=== PATIENT | female | born 1985 | race Caucasian/White ===

== ENCOUNTER 2019-01-31 14:28 | Emergency (ER) | payer OTHER ==
[~2019-01-31] VITALS: Ht 162.6 cm; Wt 72.6 kg
[~2019-01-31 14:28] MED LIST: ABILIFY10 MG PO; ADDERALL 20 MG20 M1 PO; ADDERALL 30 MG30 MG; ALPRAZOLAM XR2 MG; AMOXICILLIN 50500 MG PO; BACTRIM DS TAB1 EACH PO; CARISOPRODOL 3350 MG; CARISOPRODOL 3350 MG PO; CYMBALTA; CYMBALTA30 MG PO; ENBREL25 MG/0.5 SQ; FLAGYL500 MG PO; HIBICLENS120 ML TP; HYDROXYCHLOROQ200 M1 PO; IBUPROFEN 800800 M1 PO; MUPIROCIN15 GM TP; NEURONTIN 300300 M1 PO; NOHOMEMEDICATIONS; NORCO 5-325 TA1 EACH PO; PEPCID20 MG PO; PHENERGAN 25 MG25 M1; PHENERGAN12.5 MG RC; PREDNISONE; PREDNISONE 10 M10 M1 PO; PREDNISONE 10 M10 MG PO; PREDNISONE 20 M20 MG PO; PROMETHAZINE12.5 M1 PO; SUBOXONE 8 MG-1 EAC3; TRAMADOL; ZANTAC 150MG T150 MG PO
[2019-01-31 15:48] LABS: ABSOLUTE NEUTROPHILS 3.1 thou/uL (1.4-8.2); BASOPHILS 0.6 % (0.0-2.0); EOSINOPHILS 1.6 % (0.0-3.0); HEMATOCRIT 38.3 % (37.0-47.0); HEMOGLOBIN 13.3 gm/dL (12.0-15.0); LYMPHOCYTES 23.8 % (24.0-44.0); MCH 33.1 pg (26.0-34.0); MCHC 34.7 g/dL (28.0-37.0); MCV 95.5 fL (80.0-100.0); MONOCYTES 7.7 % (1.0-8.0); PLATELET COUNT 241 thou/uL (150-400); POLYS 66.3 % (36.0-66.0); RBC 4.01 mil/uL (4.20-5.00); RDW 12.6 % (10.5-14.5); WBC 4.7 thou/uL (4.0-11.0)
[2019-01-31 15:58] LABS: URINE BILIRUBIN NEGATIVE (Negative); URINE BLOOD NEGATIVE (Negative); URINE CLARITY CLEAR; URINE COLOR YELLOW; URINE GLUCOSE-RANDOM* NEGATIVE (Negative); URINE KETONES NEGATIVE (Negative); URINE LEUKOCYTES NEGATIVE (Negative); URINE NITRITE NEGATIVE (Negative); URINE PROTEIN (DIPSTICK) NEGATIVE (Negative); URINE UROBILINOGEN 0.2 E.U./dl (0.2-1.0)
[2019-01-31 17:25] LABS: ALBUMIN 4.3 g/dL (3.4-5.0); CALCIUM 9.5 mg/dL (8.5-10.1); CREATININE 0.9 mg/dL (0.6-1.0); POTASSIUM 3.6 mmol/L (3.5-5.1); TOTAL BILIRUBIN 0.6 mg/dL (<0.1-1.0); TOTAL PROTEIN 7.4 g/dL (6.4-8.2)
[2019-01-31] MEDS ORDERED: ONDANSETRON HCL4 M2 PO (18:12)
[2019-01-31] MEDS ORDERED: IBUPROFEN 600600 M1 PO (18:12)
[2019-01-31 18:14] VITALS: BP 106/70
== END 2019-01-31 17:53 | disposition home or self-care (01) ==
LOC: ER 14:28
PROVIDERS: Emergency Medicine; Physician Assistant
DX: R10.9 Unspecified abdominal pain (principal); R11.2 Nausea with vomiting, unspecified; R19.7 Diarrhea, unspecified; M32.9 Systemic lupus erythematosus, unspecified; F17.210 Nicotine dependence, cigarettes, uncomplicated; Z85.43 Personal history of malignant neoplasm of ovary